=== PATIENT | male | born 2000 | race Caucasian/White ===

== ENCOUNTER 2025-08-14 12:29 | Emergency (ER) | payer MEDICAID ==
[~2025-08-14] VITALS: Ht 182.9 cm; Wt 80.0 kg
[2025-08-14 12:53] VITALS: O2SAT 99
[2025-08-14 13:25] LABS: CLARITY URINE CLEAR (CLEAR); COLOR URINE YELLOW (YELLOW); GLUCOSE URINE NEGATIVE (NEGATIVE); KETONES URINE NEGATIVE (NEGATIVE); LEUKOCYTE ESTERASE URINE NEGATIVE (NEGATIVE); NITRITE URINE NEGATIVE (NEGATIVE); OCCULT BLOOD URINE NEGATIVE (NEGATIVE); PH URINE 6.5 (4.5-8.0); PROTEIN URINE NEGATIVE (NEGATIVE); SPECIFIC GRAVITY URINE 1.018 (1.005-1.030); UROBILINOGEN URINE 1.0 E.U./dL (0.2-1.0)
[2025-08-14] MEDS ORDERED: CEPH250C2 MT (13:45)
[2025-08-14] MEDS ORDERED: IBUP-2028 MT (13:45)
[2025-08-14 14:06] VITALS: BP 116/72; PULSE 69; RESP 18; TEMP 36.8; O2SAT 100
== END 2025-08-14 14:07 | disposition home or self-care (01) ==
LOC: ER 12:29
DX: N39.0 Urinary tract infection, site not specified (principal); R10.24 Suprapubic pain
CPT/HCPCS: 81003; 99283